=== PATIENT | male | born 1960 | race Caucasian/White ===

== ENCOUNTER → 2017-05-24 | Outpatient (CLI) | payer OTHER ==
--- NOTE | 2017-05-24 12:30 | RAD ---
Examination: MRI right shoulder without contrast HISTORY: History of right shoulder pain, decreased range of motion COMPARISON: None available. TECHNIQUE: Multiplanar , multisequence MR imaging of the right shoulder performed without contrast. FINDINGS: The long head of biceps tendon is within the bicipital groove. The attachment of the long biceps tendon to the superior labral anchor is not clearly identified due to motion artifact. There is mild increased signal identified in the scapula tendon likely tendinosis. There are small focus of full-thickness tear identified in the anterior most fibers of the supraspinatus tendon at its junction with the subscapularis measuring 5.5 mm in AP dimension, with extension of fluid into the subacromial subdeltoid bursa. There is moderate increased signal identified in the subscapularis, supraspinatus, infraspinatus tendons. There is mild increased signal identified throughout the labrum likely degeneration. There is mild muscle bulk loss identified in the supraspinatus muscle. There is obscuration of fat in the rotator interval. Moderate degenerative changes identified in the acromioclavicular joint. Acromion is type II. The inferior aspect of the acromion abuts the superior aspect of the supraspinatus tendon. Moderate degenerative changes identified in the acromioclavicular and the glenohumeral joints. IMPRESSION: 1. Small focus of full-thickness tear identified in the anterior fibers of the supraspinatus tendon at its attachment of the subscapularis tendon with extension of fluid into subacromial subdeltoid bursa. 2. The acromion is downsloping with the anterior aspect of the acromion abutting the superior aspect of the supraspinatus tendon. Correlate for impingement. 3. Moderate tendinosis of the subscapularis, supraspinatus, infraspinatus tendons. 4. Obscuration of fat infiltrated interval. Correlate for evidence of capsulitis. Electronically signed by: Cory Rosales MD (05/24/2017 12:27 PM) [place] [id number]
== END | disposition home or self-care (01) ==
LOC: MRI 10:08
PROVIDERS: ATTEND Family Medicine
DX: M75.101 Unspecified rotator cuff tear or rupture of right shoulder, not specified as traumatic (principal)
CPT/HCPCS: 73221